=== PATIENT | female | born 1975 ===

== ENCOUNTER 2021-03-03 09:15 | Inpatient (IN) | payer OTHER ==
[~2021-03-03] VITALS: Ht 165.1 cm; Wt 73.5 kg
[2021-03-03] MEDS ORDERED: PROZAC20 MG (11:33)
[2021-03-03] MEDS ORDERED: MAXFE (11:34)
[2021-03-03] MEDS ORDERED: SYNTHROID75 MCG (11:34)
[2021-03-03] MEDS ORDERED: MAGNESIUM500 MG (11:34)
[2021-03-05] MEDS ORDERED: SPRINTEC 28 DA1 EACH (08:12)
[2021-03-05] MEDS ORDERED: MEDROXYPRO150 MG/1 M (08:12)
[2021-03-05] MEDS ORDERED: MEGESTROL ACETA40 MG (08:12)
== END 2021-03-08 15:29 | disposition home or self-care (01) | DRG 743 ==
LOC: O/R 03-05 05:51 → OB/GYN 03-05 05:51
PROVIDERS: ADMIT Specialist; ATTEND Specialist
PROC: 0UT70ZZ Resection of Bilateral Fallopian Tubes, Open Approach (ICD-10-PCS; 2021-03-05)
PROC: 0UT90ZZ Resection of Uterus, Open Approach (ICD-10-PCS; principal; 2021-03-05 07:00)
PROC: 30233N1 Transfusion of Nonautologous Red Blood Cells into Peripheral Vein, Percutaneous Approach (ICD-10-PCS; 2021-03-07)
DX: D25.0 Submucous leiomyoma of uterus (principal); D64.9 Anemia, unspecified; N72 Inflammatory disease of cervix uteri; D25.1 Intramural leiomyoma of uterus; D25.2 Subserosal leiomyoma of uterus; N92.6 Irregular menstruation, unspecified; E03.9 Hypothyroidism, unspecified